=== PATIENT | male | born 1955 | race Caucasian/White ===

== ENCOUNTER 2018-12-15 13:12 | Emergency (ER) | payer MEDICAID, SELFPAY ==
[2018-12-15] VITALS (7 sets, daily range): BP systolic 135–155; BP diastolic 84–92; PULSE 62–77; RESP 13–16; TEMP 37.1; O2SAT 92–96; BMI 33.7
--- NOTE | 2018-12-15 13:14 | EKG12_ITS ---
Test Reason : CP Blood Pressure : / mmHG Vent. Rate : 078 BPM Atrial Rate : 078 BPM P-R Int : 170 ms QRS Dur : 082 ms QT Int : 410 ms P-R-T Axes : 053 015 009 degrees QTc Int : 467 ms Normal sinus rhythm Nonspecific T-Wave Abnormality Confirmed by AURORA SAN, VALORIE ([id number]), acquisition editor TAMARA DACOSTA ([id number]) on 12/18/2018 9:03:35 AM Referred By: YOLI Confirmed By:VALORIE SIMON MD
--- NOTE | 2018-12-15 13:15 | RAD_ITS ---
STUDY: X-RAY CHEST REASON FOR EXAM: Male, 63 years old. Chest pain started today TECHNIQUE: AP COMPARISON: None. FINDINGS: EKG leads project over the chest. The lungs are clear and expanded. There is no demonstrated pleural abnormality. Normal size heart. Normal mediastinum and nate. Normal visualized pulmonary arteries. Normal visualized aortic arch and descending thoracic aorta. Normal visualized thoracic spine. Normal visualized ribs, clavicles, and shoulders. There is no demonstrated abnormality of the visualized soft tissue structures of the upper abdomen. RAD/Chest 1 View (Portable) IMPRESSION: Nonacute portable x-ray examination of the chest. Electronically Signed: Erick Amaral MD at 13:31 EDT , Service support ,
--- NOTE | 2018-12-15 13:15 | ED.VISSUMM ---
- ER Visit Summary Date of Service: 12/15/18 Chief Complaint: [Chest pain History of Present Illness: The patient is a 63 M presents to the emergency department chest pain. Patient has a history of hypertension, hyperlipidemia, and prior MN requiring one stent. This was done 2010. He follows with [facility] cardiology in [place]. He states that he was walking up a hill. He had rather gradual onset, substernal chest heaviness that radiated into his arm and neck. He states that he felt short of breath and diaphoretic. He took 2 of his nitro and called squad. On squad arrival, he was given 2 more nitro and aspirin. States his pain is improved, but still persistent. He states that up until today, he had some mild pain, but nothing like this. He states this feels very similar to his prior heart attack. Pain is not in his back. He does not describe it as a tearing pain. Physical Examination: Vital signs reviewed General: Well-nourished, well-developed Head: Normocephalic, atraumatic Eyes: Pupils equal and reactive, extraocular muscles intact Neck, supple, no lymphadenopathy Heart: Regular rate and rhythm Respiratory: No distress, clear bilaterally Abdomen: Soft, nontender, nondistended, no peritoneal signs Back: Nontender Extremities: Nontender, no edema, no cords Skin: Normal color no rash Neuro: Alert and oriented, no focal or lateralizing deficits] Test Results: [] Emergency Department Course and Treatment: Patient presents with chest pain. His EKG shows no evidence of acute ischemia. After nitro and morphine, he is now pain-free. States that it was not really chest pain that brought him in. He states that he is been feeling suicidal. He states I am going to take a gun and blow my brains out. Patient does have a history of bipolar disorder. He states that he was just concerned that no one to take him seriously unless he said that he had chest pain. His initial cardiac enzymes were normal. His x-ray is unremarkable. He continues to be pain-free. At this time, the patient will undergo medical clearance work-up and will be discussed with crisis given his suicidality. Treatment Plan: [] Disposition: Pending Impression: 1. Chest pain 2. Suicidal ideation with plan This note was generated with [employer] software. It may contain incorrect words, spelling, and punctuation that were not noted in review of the chart prior to signing ED Disposition - Plan for ED Patient: Referrals: NOT,DEFINED [NON-STAFF] -
[2018-12-15] MEDS: Morphine 4 MG/ML Syringe IV (13:36)
[2018-12-15] MEDS: Nitroglycerin Oint 1 INCH PACKET TRANSDERM. (13:36)
[2018-12-15] MEDS: 0.9% Normal Saline 1,000 ML 150 ML IV (13:36)
[2018-12-15] MEDS: Ondansetron 4 MG/2 ML Vial IV (13:36)
[2018-12-15 13:49] LABS: Absolute Lymphocyte Count 0.99 X10^3/ul (0.83-4.51); Absolute Neutrophil Count 5.2 X10^3/uL (2.0-7.7); Basophil# 0.03 X10^3/uL; Basophil% 0.4 % (0-1); Eosinophil# 0.05 X10^3/uL; Eosinophils% 0.7 % (0-5); Hematocrit 40.4 % (40-54); Hemoglobin 14.4 g/dl (13.0-16.5); Lymphocyte # 0.99 X10^3/ul (4.0); Lymphocyte % 14.8 % (19-41); Mean Corp Hgb Conc 35.6 g/gl (32-36); Mean Corpuscular Hgb 32.2 pg (27.0-32.0); Mean Corpuscular Volume 90.4 fL (80-94); Mean Platelet Vol. 8.6 fl (6.2-12.0); Monocyte# 0.36 X10^3/uL; Monocyte% 5.4 % (0-10); Neutrophil # 5.23 X10^3/uL (2.7-7.7); Neutrophil % 78.6 % (47-70); POSITIVE COUNT NO; POSITIVE DIFFERENTIAL NO; POSITIVE MORPHOLOGY NO; Platelet Count 233 K/mm3 (150-450); RBC Distribution Width CV 12.9 % (11.6-14.6); RBC Distribution Width SD 42.6 fl (35.1-43.9); Red Blood Count 4.47 M/mm3 (4.6-6.2); White Blood Count 6.7 K/mm3 (4.4-11.0)
[2018-12-15 13:57] LABS: Anion Gap 7 (5-15); BUN 5 mg/dL (7-18); BUN/Creat Ratio 5.9 RATIO (10-20); Calcium,Total 8.4 mg/dL (8.5-10.1); Chloride 105 mmol/L (98-107); Creatinine, Serum 0.84 mg/dL (0.70-1.30); EST Glomerular Filtration Rate 97 mL/min (>60); Est Glom Filt Rate - Afr Amer 118 mL/min (>60); Estimated Creatinine Clearance 95.87 ml/min; Glucose 108 mg/dL (74-106); Magnesium 1.7 mg/dL (1.6-2.6); Potassium 3.5 mmol/L (3.5-5.1); Sodium Level 142 mmol/L (136-145)
[2018-12-15 14:14] LABS: BNP,B-Type NATRIURETIC PEPTIDE 193.8 pg/mL (0-100)
--- NOTE | 2018-12-15 14:45 | ED.RN ---
with triage screening, pt originally said no to our mental health screening questions. Then he stated later that he wanted to be honest with his answer and states he does have thoughts of harming himself. He said this is because of his chronic pain. He has had a previous attempt with a gun that he stated jammed and was hospitalized. He said his plan would be to shoot himself. MD informed. MD went back to talk with patient and initiated suicide precautions. sitter at bedside 1:1
[2018-12-15 15:25] LABS: Amphetamine Urine VISTA NEGATIVE (<1000 ng/mL); Barbiturate Urine VISTA NEGATIVE (< 200 ng/mL); Benzodiazepine Urine VISTA NEGATIVE (< 200 ng/mL); Cocaine Urine VISTA NEGATIVE (< 300 ng/mL); Ecstacy Urine VISTA NEGATIVE (< 500 ng/mL); Methadone Urine VISTA NEGATIVE (< 300 ng/mL); PCP Urine VISTA NEGATIVE (< 25 ng/mL); THC Urine VISTA POSITIVE (< 50 ng/mL); Vista UDS pH Range 7
[2018-12-15] MEDS: Acetaminophen 500 MG Tablet 1000 MG PO (15:48)
--- NOTE | 2018-12-15 16:59 | ED.RN ---
PAGED [facility] FOR THE PATIENT. LEFT MESSAGE WITH THE ANSWERING SERVICE
[2018-12-15] MEDS: Ibuprofen 600 MG Tablet PO (20:52)
--- NOTE | 2018-12-15 22:23 | ED.RN ---
called report to Dianna BONILLA at [facility]
== END 2018-12-15 23:10 | disposition short-term general hospital (02) ==
PROVIDERS: Emergency Medicine; Emergency Provider Emergency Medicine
DX: R07.89 Other chest pain (principal); R45.851 Suicidal ideations; R06.00 Dyspnea, unspecified; R61 Generalized hyperhidrosis; R11.0 Nausea; I25.10 Atherosclerotic heart disease of native coronary artery without angina pectoris; I25.2 Old myocardial infarction; E11.9 Type 2 diabetes mellitus without complications; I10 Essential (primary) hypertension; E78.00 Pure hypercholesterolemia, unspecified; F31.9 Bipolar disorder, unspecified; Z95.5 Presence of coronary angioplasty implant and graft; Z79.82 Long term (current) use of aspirin; Z79.899 Other long term (current) drug therapy; Z72.0 Tobacco use
CPT/HCPCS: 71045; 80048; 80307; 80320; 83735; 83880; 84484; 85025; 93005; 96361; 96374; 96375; 99285; J7030; A4216; G0480; J2405